=== PATIENT | female | born 1980 | race Caucasian/White ===

== ENCOUNTER 2016-11-01 14:58 | Emergency (ER) | payer BC ==
[2016-11-01 15:25] VITALS: BP 135/73
[2016-11-01] MEDS ORDERED: Ketorolac 60 MG/2 ML SDV IM ONE (16:04)
[2016-11-01] MEDS ORDERED: Cyclobenzaprine 10 MG Tab PO ONE (16:04)
--- NOTE | 2016-11-01 16:07 | EDM.PDOC ---
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 may have had long exposures with her head down while she's working has tried ibuprofen with minimal relief - Related Data Allergies/ADRs: Allergies Allergy/AdvReac Type Severity Reaction Status Date / Time Penicillins Allergy Cannot Verified 11/01/16 15:17 Remember Home Meds: Home Meds Gabapentin [Gabapentin] 11/01/16 [History] Gemfibrozil [Gemfibrozil] 11/01/16 [History] Insulin Aspart [NovoLOG] 11/01/16 [History] Lisinopril [Lisinopril] 11/01/16 [History] Naltrexone HCl/Bupropion HCl [Contrave ER 8-90 mg Tablet] 11/01/16 [History] Omeprazole 11/01/16 [History] metFORMIN [Glucophage] 11/01/16 [History] traMADol [Take Home: traMADol 50 MG, 4 Tab Pack] 11/01/16 [History] Past Medical History Endocrine/Metabolic History: Reports: Diabetes, type II - Past Surgical History GI Surgical History: Reports: Cholecystectomy Social & Family History - Tobacco Use Smoking Status *Q: Never Smoker ED ROS GENERAL - Review of Systems Review Of Systems: See Below Constitutional: Reports: no symptoms HEENT: Reports: No symptoms Respiratory: Reports: no symptoms Cardiovascular: Reports: No symptoms GI/Abdominal: Reports: No symptoms : Reports: no symptoms Musculoskeletal: Reports: neck pain ED EXAM, UPPER BACK/NECK PAIN - Physical Exam Exam: See Below Exam Limited By: No limitations General Appearance: alert, WD/WN, no apparent distress Head Exam: atraumatic, normocephalic Neck Exam: normal alignment, normal inspection, limited range of motion, muscle spasm, painful range of motion, paraspinous muscle tender, tenderness, tender lateral. No: spinous processes tender, stiff neck, tender midline Course - Vital Signs Last Recorded V/S: Last Vital Signs Temp 98.6 F 11/01/16 15:23 Pulse 108 H 11/01/16 15:23 Resp 14 11/01/16 15:23 BP 135/73 11/01/16 15:23 Pulse Ox 98 11/01/16 15:23 - Orders/Labs/Meds Meds: Medications Discontinued Medications Generic Name Dose Route Start Last Admin Trade Name Megan PRN Reason Stop Dose Admin Cyclobenzaprine HCl 10 mg 11/01/16 16:04 11/01/16 16:31 Flexeril PO 11/01/16 16:05 10 mg ONETIME ONE Administration Ketorolac Tromethamine 60 mg 11/01/16 16:04 11/01/16 16:31 Toradol IM 11/01/16 16:05 60 mg ONETIME ONE Administration Departure - Departure Time of Disposition: 16:50 Disposition: Home, Self-Care 01 Condition: good Clinical Impression: Neck pain, Sprain Forms: ED Department Discharge Additional Instructions: continue to use ibuprofen as needed for pain control, use Flexeril as needed for muscle relaxant, Please followup with your primary care provider in 3-5 days if not better, please call return to the emergency department with worsening of symptoms. - Assessment/Plan Plan: Assessment Acuity = acute Site and laterality = neck spasm Etiology = secondary to overuse injury Manifestations = pain Location of injury = home Lab values = none Plan she had good relief with the Toradol injection and Flexeril plan is to discharge home with Flexeril follow up with primary care 3-5 days if no improvement Patient was in agreement with the plan all questions were answered, they were instructed to return to the emergency department or call for worsening symptoms. This note was dictated using [employer] voice recognition software please call with any questions.
== END 2016-11-01 17:03 | disposition home or self-care (01) ==
LOC: JP.ED 14:58
DX: S13.9XXA Sprain of joints and ligaments of unspecified parts of neck, initial encounter (principal); E11.9 Type 2 diabetes mellitus without complications; Z88.0 Allergy status to penicillin; Z98.890 Other specified postprocedural states; X58.XXXA Exposure to other specified factors, initial encounter
CPT/HCPCS: 96372; 99283; A9270; J1885

== ENCOUNTER 2017-07-16 08:22 | Inpatient (IN) | payer BC ==
[~2017-07-16 08:22] MED LIST: Dexamethasone 4 MG/ML SDV ONE; Glycopyrrolate 0.2 MG/ML 5 ML MDV ONE; Lactated Ringers 1,000 ML ONE; Midazolam 1 MG/ML 2 ML SDV ONE; Neostigmine Methylsulfate 1 MG/ML 5 ML Syringe ONE; Ondansetron 4 MG/2 ML SDV ONE; Propofol 200 MG/20 ML SDV ONE; Rocuronium 50 MG/5 ML Vial ONE; Succinylcholine 200 MG/10 ML MDV ONE; cefOXitin 2 GM Vial ONE; fentaNYL 250 MCG/5 ML SDV ONE
[2017-07-16] MEDS ORDERED: Celecoxib 200 MG Cap PO ONE (08:30)
[2017-07-16] MEDS ORDERED: Gabapentin 300 MG Cap PO ONE (08:30)
[2017-07-16] MEDS ORDERED: Scopolamine 1.5 MG Transdermal Patch TOP SCH (08:30)
[2017-07-16] MEDS ORDERED: Acetaminophen 500 MG Tab PO ONE (08:30)
[2017-07-16] MEDS ORDERED: cefOXitin 2 GM in Sodium Chloride 0.9% 50 ML IV ONE (10:00)
[2017-07-16] MEDS ORDERED: Dextrose 5%-Lactated Ringers 1,000 ML IV SCH (10:00)
[2017-07-16] MEDS ORDERED: Lidocaine 2% 100 MG/5 ML Syringe IVPUSH ONE (10:30)
[2017-07-16] MEDS ORDERED: Ketamine 500 MG/5 ML MDV IV ONE (10:30)
[2017-07-16] MEDS ORDERED: Ropivacaine 54 ML, Dexamethasone 8 MG, EPINEPHrine 0.4 MG, Sodium Chloride 0.9% 23.6 ML NERVRT ONE ×4 (10:30)
[2017-07-16] MEDS ORDERED: Rocuronium 50 MG/5 ML Vial ONE (11:27)
[2017-07-16] MEDS ORDERED: fentaNYL 100 MCG/2 ML SDV ONE (12:50)
[2017-07-16] MEDS ORDERED: Insulin Aspart 100 Units/ML 3 ML Pen SUBCUT ONE (13:23)
[2017-07-16] MEDS ORDERED: Labetalol 20 MG/4 ML Syringe IVPUSH ONE (13:30)
--- NOTE | 2017-07-16 14:09 | CR ---
Chest 1V Frontal HISTORY: Central line placement. COMPARISON: None FINDINGS: Left-sided central line catheter. Distal tip overlies superior vena cava. Widening of the m ediastinum typical for portable lordotic projection. No focal infiltrates or pneumothorax.
[2017-07-16] MEDS: Lidocaine 0.4%/D5W 2 GM/500 ML BAG IV SCH (14:24)
[2017-07-16] MEDS ORDERED: Meperidine PF 100 MG/ML Syringe IM ONE (14:45)
[2017-07-16] MEDS ORDERED: Ondansetron 4 MG/2 ML SDV IVPUSH PRN (15:00)
[2017-07-16] MEDS ORDERED: Metoclopramide 10 MG/2 ML SDV IVPUSH PRN (15:00)
[2017-07-16] MEDS ORDERED: diphenhydrAMINE 50 MG/ML SDV IVPUSH PRN (15:00)
[2017-07-16] MEDS ORDERED: hydrOXYzine HCl 100 MG/2 ML SDV IM PRN (15:00)
[2017-07-16] MEDS ORDERED: Albuterol/Ipratropium 3.0-0.5 MG/3 ML Neb Soln INH PRN (15:00)
[2017-07-16] MEDS ORDERED: Glucagon,Human Recombinant 1 MG Vial IM PRN (15:00)
[2017-07-16] MEDS ORDERED: Labetalol 20 MG/4 ML Syringe IVPUSH PRN (15:00)
[2017-07-16] MEDS ORDERED: 50% Dextrose in Water 50 ML Syringe IVPUSH PRN (15:00)
[2017-07-16] MEDS: Albuterol/Ipratropium 3.0-0.5 MG/3 ML Neb Soln INH SCH ×2 (15:16→19:59)
[2017-07-16] MEDS ORDERED: MVI, Adult with Vitamin K 10 ML, Thiamine 200 MG, Chromium/Copper/Mang/Selen/Zn 1 ML in... IV SCH ×4 (16:00)
[2017-07-16] MEDS ORDERED: Pantoprazole 40 MG Vial IVPUSH SCH (16:00)
[2017-07-16] MEDS: Gabapentin 250 MG/5 ML Solution ML 470 ML Bottle PO SCH ×2 (16:36→20:00)
[2017-07-16] MEDS: Acetaminophen Soln 650 MG/20.3 ML UD Cup PO SCH ×2 (16:36→22:22)
[2017-07-16] MEDS: metFORMIN 500 MG Tab PO SCH (16:37)
[2017-07-16] MEDS: cefOXitin 2 GM in Sodium Chloride 0.9% 50 ML IV SCH ×2 (16:37→22:21)
[2017-07-16] MEDS: Insulin Aspart 100 Units/ML 3 ML Pen SUBCUT PRN (16:38)
[2017-07-16] MEDS: HYDROmorphone 1 MG/ML Syringe IVPUSH PRN (19:56)
[2017-07-16] MEDS: Heparin Sodium 5,000 Units/ML Vial SUBCUT SCH (19:59)
[2017-07-16] MEDS ORDERED: Benzocaine/Cetylpyridinium/Menthol Lozenge MUCMEM PRN (22:15)
[2017-07-16] MEDS: Dextrose 5%-Lactated Ringers 1,000 ML IV SCH (22:44)
[2017-07-17] MEDS: Insulin Aspart 100 Units/ML 3 ML Pen SUBCUT PRN ×4 (00:19→22:52)
[2017-07-17] MEDS: HYDROmorphone 1 MG/ML Syringe IVPUSH PRN ×3 (00:38→10:55)
[2017-07-17] MEDS: Lidocaine 0.4%/D5W 2 GM/500 ML BAG IV SCH (02:15)
[2017-07-17] MEDS: Acetaminophen Soln 650 MG/20.3 ML UD Cup PO SCH ×4 (03:45→21:00)
[2017-07-17] MEDS: cefOXitin 2 GM in Sodium Chloride 0.9% 50 ML IV SCH ×4 (03:45→20:59)
[2017-07-17] MEDS ORDERED: Iohexol 647 MG/ML 50 ML SDV PO SCH (03:45)
[2017-07-17] MEDS: Dextrose 5%-Lactated Ringers 1,000 ML IV SCH (05:09)
[2017-07-17] MEDS: Albuterol/Ipratropium 3.0-0.5 MG/3 ML Neb Soln INH SCH ×4 (07:26→20:53)
[2017-07-17] MEDS: Heparin Sodium 5,000 Units/ML Vial SUBCUT SCH ×2 (08:20→20:53)
[2017-07-17] MEDS: metFORMIN 500 MG Tab PO SCH ×2 (08:20→17:02)
[2017-07-17] MEDS: Celecoxib 200 MG Cap PO SCH (08:20)
[2017-07-17] MEDS: Gabapentin 250 MG/5 ML Solution ML 470 ML Bottle PO SCH ×2 (08:21→20:54)
[2017-07-17] MEDS: SCOPOLAMINE PATCH CHECK TOP SCH (08:22)
[2017-07-17] MEDS: Lisinopril 5 MG Tab PO SCH (08:29)
[2017-07-17] MEDS: Lactated Ringers 1,000 ML IV SCH (08:31)
[2017-07-17] MEDS: HYDROmorphone 2 MG Tab PO PRN ×2 (14:02→19:38)
[2017-07-17] MEDS ORDERED: MVI, Adult with Vitamin K 10 ML, Thiamine 200 MG, Chromium/Copper/Mang/Selen/Zn 1 ML in... IV SCH ×4 (16:00)
[2017-07-17] MEDS: Lansoprazole 30 MG Orally Disintegrating Tab.CR PO SCH (17:02)
[2017-07-18] MEDS: HYDROmorphone 2 MG Tab PO PRN ×5 (00:14→19:28)
[2017-07-18] MEDS: Acetaminophen Soln 650 MG/20.3 ML UD Cup PO SCH ×4 (04:11→21:36)
[2017-07-18] MEDS: cefOXitin 2 GM in Sodium Chloride 0.9% 50 ML IV SCH ×2 (04:11→09:54)
[2017-07-18] MEDS: Insulin Aspart 100 Units/ML 3 ML Pen SUBCUT PRN ×2 (04:11→10:45)
[2017-07-18] MEDS: Lactated Ringers 1,000 ML IV SCH (04:15)
[2017-07-18] MEDS: Albuterol/Ipratropium 3.0-0.5 MG/3 ML Neb Soln INH SCH ×4 (07:08→21:35)
[2017-07-18] MEDS ORDERED: Magnesium Hydroxide 400 MG/5 ML Susp 30 ML Cup PO PRN (07:52)
[2017-07-18] MEDS ORDERED: Sodium Chloride 0.9% 10 ML Syringe IV PRN (07:54)
[2017-07-18] MEDS ORDERED: Magnesium Hydroxide 400 MG/5 ML Susp 30 ML Cup PO ONE (09:00)
[2017-07-18] MEDS ORDERED: Cyanocobalamin (Vitamin B12) 1,000 MCG/ML SDV IM ONE (09:00)
[2017-07-18] MEDS: Celecoxib 200 MG Cap PO SCH (09:49)
[2017-07-18] MEDS: Lisinopril 5 MG Tab PO SCH (09:51)
[2017-07-18] MEDS: metFORMIN 500 MG Tab PO SCH ×2 (09:53→16:11)
[2017-07-18] MEDS: Heparin Sodium 5,000 Units/ML Vial SUBCUT SCH ×2 (09:54→21:35)
[2017-07-18] MEDS: Gabapentin 250 MG/5 ML Solution ML 470 ML Bottle PO SCH ×2 (09:54→21:35)
[2017-07-18] MEDS: SCOPOLAMINE PATCH CHECK TOP SCH (09:55)
--- NOTE | 2017-07-18 14:17 | PN ---
DATE OF SERVICE: 07/17/2017 The patient has been afebrile with stable vital signs. Blood sugars are running in the mid 200s and we will decrease the IV rate to 100 mL/hour and switch her to plain LR. Otherwise, we will see how things go with the metformin alone today, and otherwise, go up to step-2 diet and maximize activity working with pulmonary toilet. Grayson Esparza MD /[id number]
[2017-07-18] MEDS: Lansoprazole 30 MG Orally Disintegrating Tab.CR PO SCH (16:11)
[2017-07-19] MEDS: HYDROmorphone 2 MG Tab PO PRN ×5 (02:03→23:33)
[2017-07-19] MEDS: Acetaminophen Soln 650 MG/20.3 ML UD Cup PO SCH ×4 (03:26→22:13)
[2017-07-19] MEDS: Insulin Aspart 100 Units/ML 3 ML Pen SUBCUT PRN (04:21)
[2017-07-19] MEDS: Albuterol/Ipratropium 3.0-0.5 MG/3 ML Neb Soln INH SCH ×4 (07:20→22:29)
[2017-07-19] MEDS: Celecoxib 200 MG Cap PO SCH (08:21)
[2017-07-19] MEDS: metFORMIN 500 MG Tab PO SCH ×2 (08:21→17:12)
[2017-07-19] MEDS: Gabapentin 250 MG/5 ML Solution ML 470 ML Bottle PO SCH ×2 (08:28→21:45)
[2017-07-19] MEDS: Lisinopril 5 MG Tab PO SCH (08:28)
[2017-07-19] MEDS: Heparin Sodium 5,000 Units/ML Vial SUBCUT SCH ×2 (08:29→22:13)
--- NOTE | 2017-07-19 09:12 | CR ---
Limited upper GI The patient is status post Anderson-en-Y gastric bypass. There are left upper quadrant drains in place. T here is no extravasation of contrast. The gastric pouch empties readily into a nondilated Anderson limb. No complications are evident. Impression: 1. Status post Anderson-en-Y gastric bypass without evidence for complication.
--- NOTE | 2017-07-19 14:27 | PN ---
DATE OF SERVICE: 07/18/2017 The patient has been afebrile with stable vital signs. Oral intake was reasonably good around 1030 hours yesterday and we will therefore saline lock her IV today. Her blood sugars are still running in the 180 to the low 200s and I think we will add Januvia 100 mg today which would probably get these down to nice levels without needing any insulin coverage. Otherwise, we will give her some bowel stimulation today. She will get in the shower and may be ready for discharge home tomorrow. Grayson Esparza MD /[id number]
--- NOTE | 2017-07-19 15:34 | PN ---
DATE OF SERVICE: 07/19/2017 SUBJECTIVE: Kaitlyn is postoperative day #3, she spiked a temp is a 101.4 during the night. She reported left shoulder pain and blood sugars were 234, 160, 227, and 165 over the past 24 hours. She was started on metformin and Januvia yesterday. Oral intake 1,420, urine output 2,050, CELIO drain put out 30 mL of a light pink serosanguineous drainage. She reports her pain is controlled, up ambulating. REVIEW OF SYSTEMS: Remainder of review of systems is negative for any pertinent positives and negatives. OBJECTIVE: GENERAL: Kaitlyn Haque is a pleasant 37-year-old female. VITAL SIGNS: TPR is 99.7, 95, 17, and blood pressure 147/72. HEENT: Negative. NECK: Supple. HEART: Regular rate and rhythm. LUNGS: Clear. ABDOMEN: Dressings dry and intact. Abdominal binder is on. CELIO drain intact. Draining as above. EXTREMITIES: Without peripheral edema. ASSESSMENT: Laparoscopic Anderson-en-Y gastric bypass surgery and insertion of central vein catheter for morbid obesity and inadequate peripheral vein access. Date of surgery 07/16/2017. PLAN: 1. Change Tylenol to 650 mg p.o. tablet. It was stated in report that she was getting liquid but orders read that the Tylenol ordered was the tablets on July 16 at 1600. 2. Acapella, use 10 times every hour while awake. 3. Discontinue Januvia due to history of pancreatitis. 4. May start Jardiance either 10 or 25 mg depending on blood sugars in a.m. 5. Check CBC, CMP, and magnesium phosphorus in a.m. 6. Good pulmonary toilet. 7. We will evaluate p.r.n. or in a.m. Paige Condon PA-C /[id number]
[2017-07-19] MEDS ORDERED: Pantoprazole 40 MG Delayed-Release Granules 1 Packet PO SCH (16:30)
[2017-07-20 04:08] VITALS: BP 144/82
[2017-07-20] MEDS: Acetaminophen Soln 650 MG/20.3 ML UD Cup PO SCH (04:09)
[2017-07-20] MEDS: Albuterol/Ipratropium 3.0-0.5 MG/3 ML Neb Soln INH SCH (07:25)
[2017-07-20] MEDS: HYDROmorphone 2 MG Tab PO PRN (09:03)
[2017-07-20] MEDS: Heparin Sodium 5,000 Units/ML Vial SUBCUT SCH (09:04)
[2017-07-20] MEDS: Lisinopril 5 MG Tab PO SCH (09:04)
[2017-07-20] MEDS: Celecoxib 200 MG Cap PO SCH (09:04)
[2017-07-20] MEDS: metFORMIN 500 MG Tab PO SCH (09:04)
[2017-07-20] MEDS: Gabapentin 250 MG/5 ML Solution ML 470 ML Bottle PO SCH (09:21)
[2017-07-20] MEDS ORDERED: Acetaminophen 325 MG Tab PO SCH (10:00)
--- NOTE | 2017-07-21 09:34 | DISCH ---
ADMISSION DIAGNOSES: 1. Morbid obesity with body mass index of 36. 2. Controlled type 2 diabetes. 3. Hypertriglyceridemia. 4. Peripheral autonomic neuropathy due to diabetes. 5. Proteinuria. 6. Gastroesophageal reflux disease. 7. Major depression disorder. 8. Adjustment disorder. DISCHARGE DIAGNOSES: 1. Laparoscopic Anderson-en-Y gastric bypass surgery. 2. Liver biopsy. 3. Ligation of venous complex adjacent to splenic vein for morbid obesity and hepatomegaly. 4. Focal portal hypertension involving the spleen. DATE OF SURGERY: 07/16/2017. HISTORY: Kaitlyn Haque is a 37-year-old female with morbid obesity and increasing comorbidities. After preoperative evaluation and discussion of possible risks and possible complications, she wished to proceed with surgical procedure. HOSPITAL COURSE: Kaitlyn had her surgery on 07/16/2017. She had no operative complications. On postoperative day #1, her upper GI was normal. Her blood sugars were in the 200s. IV rate was changed from D5LR to lactated Ringer at 100 mL/hr. She was started on metformin and step 2 gastric bypass diet without cereal. On postoperative day #2, blood sugars were still running 180 to 200. Januvia 100 mg was added. On postoperative day #3, she had a temperature max of 101.4 and reported left shoulder pain. Blood sugars were 234 and the lowest was 160. The Januvia was discontinued, and she continued good pulmonary toilet, ambulation, and adequate fluid intake. On postoperative day #4, she was able to be discharged to home. Blood sugar last checked was at 160. Pain was controlled. Activity was good. She received adequate education. Vital signs were stable. PHYSICAL EXAMINATION: GENERAL: Kaitlyn Haque is a pleasant 37-year-old female. VITAL SIGNS: Height is 5 feet 7 inches and weight is 234 pounds. Temperature was 98.9, pulse was 105, respirations were 18, and blood pressure was 144/82. HEENT: Negative. NECK: Supple. HEART: Regular rate and rhythm. LUNGS: Clear. ABDOMEN: Incisions look good. Abdominal binder is on. EXTREMITIES: Without peripheral edema. DISPOSITION: Discharged to home. CONDITION: Stable and improving. DISCHARGE FOLLOWUP: Followup appointment with Paige Condon PA-C on 07/23/2017 at 9:00 a.m. HOME MEDICATIONS: 1. Celebrex 200 mg p.o. daily. She is to start taking Celebrex 200 mg, #14. 2. Magnesium oxide 400 mg p.o. daily, #90. 3. Zofran ODT 4 mg q.6 hours p.r.n. nausea, #30. 4. Continue Tylenol 650 mg q.4 hours p.r.n. pain. 5. Gabapentin 600 mg oral twice daily. 6. Lopid 600 mg oral twice daily. 7. Tramadol one to two oral 3 times daily p.r.n. diabetic neuropathy pain. DIET AFTER DISCHARGE: Step 2 gastric bypass diet with no cereal. Drink eight to ten glasses of water a day. ACTIVITY: As tolerated. Driving, do not drive for one week. Shower/bathing, may shower. Notify provider if any fever, increased pain, nausea, or vomiting. Keep site clean and dry. Wear abdominal binder for one week, and then as tolerated. SPECIAL INSTRUCTIONS: 1. Use incentive spirometer 10 times every hour while awake for one week. 2. Check blood sugars twice daily and as needed. 3. Keep a record of protein and fluid intake.
--- NOTE | 2017-07-21 15:37 | OR ---
DATE OF PROCEDURE: 07/16/2017 PREOPERATIVE DIAGNOSIS: Morbid obesity. POSTOPERATIVE DIAGNOSES: 1. Morbid obesity. 2. Marked hepatomegaly. 3. Focal portal hypertension around the spleen with inflammatory adherence of splenic vessels to posterior aspect of stomach. OPERATIVE PROCEDURES: 1. Laparoscopic Anderson-en-Y gastric bypass with long limb gastroenterostomy (73665). 2. Jose E-Cut needle liver biopsy (23213). 3. Ligation of engorged venous and arterial vessels adjacent to splenic vein and splenic artery (95016). ANESTHESIA: General. PROTOTYPE MACHINE OPERATOR: Paige Condon PA-C. INDICATIONS FOR PROCEDURE: This 37-year-old female presenting with longstanding morbid obesity and increasingly significant comorbidities. After preoperative evaluation and discussion, she wished to proceed with a gastric bypass procedure. Potential risks of the procedure including bleeding, infection, leaks from various GI tract closures, problems with bowel obstruction over time as well as possibility of biliary, cardiopulmonary, septic, or hemorrhagic complications leading to were all discussed, and the patient wishes to proceed. DETAILS OF PROCEDURE: The patient was taken to the operative room and placed in a supine position. After general endotracheal anesthesia was induced, she was converted to a lithotomy position. Orogastric tube placed and the abdomen was prepped and draped. A 15 cm inferior and 5 cm left of xiphoid process, a transverse incision was made and the peritoneal cavity entered under direct vision with an Optiview trocar and inflated to 15 mmHg pressure of CO2. Laparoscope was then reinserted. No underlying trocar insertion site injuries were seen. Following this, bilateral subcostal transversus abdominis plane blocks were placed. These were placed with direct visualization of the needle tip being within the transversus abdominis muscle from within. At this point, 5 additional trocars were placed across the upper and midabdomen, and general exploration was undertaken. The patient was noted to have marked hepatomegaly with liver volume being roughly 3 to 4 times normal and liver grossly fatty infiltrated. Jose E-Cut needle biopsies were obtained from left lobe of the liver. Minimal bleeding from the biopsy sites was controlled with electrocautery. Following this, the omentum was divided in the midline up to the level of the transverse colon. This allowed identification of the small bowel to the ligament of Treitz. Small bowel was then traced out 200 cm distal to that point, where it was divided transversely with a ANGELO stapler. Small bowel was then traced out an additional 150 cm, where the side-to- side enteroenterostomy was accomplished with an internal firing of the Endo-ANGELO 60 mm stapler. The common opening was closed transversely, angles anastomosed, and mesenteric defect approximated with some 0 Ethibond stitch along with fibrin sealant. The divided end of the Anderson limb was then from the mesentery for a few centimeters, which allowed an antecolic position of the Anderson limb up to the level of the gastroesophageal junction without tension. At this point, the liver was retracted anteriorly. The patient was noted not to have any significant hiatal hernia. The patient was noted to have what appeared to be some focal portal hypertension around the spleen. The remainder of the mesenteric vessels throughout the abdomen were uninvolved. 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 Subsequently, during the course of the dissection behind the stomach and creation of the pouch, the posterior aspect of the stomach was noted to be quite adherent to the area of the splenic vessels and with these being engorged, there was some significant amount of bleeding and group of the venous branches and arterial branches to the splenic vein and artery were then ligated with a [id number] stitch of 3-0 Vicryl stitch. This appeared to satisfactorily control the bleeding. The main course of the splenic artery and vein were noted to be still intact. The gastrointestinal balloon catheter was then inflated to 15 mL and pulled up snugly against the EG junction. Gastric wall of the apex balloon was then marked with electrocautery, and the lesser omental tissue adjacent to the gastric cardia was incised. At this point, where the stomach was initially divided with a transverse firing of the ANGELO stapler at the level of cauterized martell in the gastric cardia, the patient was noted to have that area of bleeding adjacent to the splenic artery and vein, and that area was then controlled with a [id number] stitch of 3-0 Vicryl stitch. There was quite a bit in way of venous collaterals extending from the spleen to the abdominal wall and the omental attachments to a lesser extent into the short gastric vessels. The pouch was then completed with 2 additional firings of the ANGELO stapler up to and through the angle of His. At this point, the anvil of a 25-mm EEA stapler was attached to Ripley sump type tube. The latter was brought down through the mouth and taken out through a small opening in the gastric pouch. The anvil likewise was pulled down to within the gastric pouch. The divided end of the Anderson limb was then opened and the main body of the EEA stapler was passed several centimeters into the lumen of the small bowel, brought up the anvil and united with it, thus creating the gastrojejunostomy. Upon removal of the stapler, double donuts of mucosa were noted within it. Small bowel was closed off with a vascular staple line. Gastrojejunostomy was then reinforced with some 3-0 Vicryl seromuscular stitch along with fibrin sealant. A leak test was accomplished with injection of 120 mL of air in the gastric pouch while submerged with cefoxitin-containing saline solution. No leaks were noted. One Moose- Estes drain was taken out the left lateral trocar site and positioned adjacent to the gastrojejunostomy and from there into the center of the splenic fossa. With no further problems noted, trocars were removed and the peritoneal cavity deflated. Incisions were then closed with some 4-0 Vicryl skin stitch, which was also used to fix the drain. The patient was taken to the recovery room in a satisfactory condition. Physician orthopaedic physician assistant, Paige Condon, played an essential role in assisting in this case, helping to position the patient, retract structures as needed, as well as suturing and cutting sutures when indicated. Her presence improved patient safety and decreased the operative time. Grayson Esparza MD /[id number]
== END 2017-07-20 12:00 | disposition home or self-care (01) | DRG 403 ==
LOC: JP.SDS 08:22 → JP.MS 08:22 → EDSTATUS 11:00 → JP.2SS 14:10
PROVIDERS: ADMIT Surgery; ATTEND Surgery
PROC: 0D164ZA Bypass Stomach to Jejunum, Percutaneous Endoscopic Approach (ICD-10-PCS; principal; 2017-07-16)
PROC: 0FB24ZX Excision of Left Lobe Liver, Percutaneous Endoscopic Approach, Diagnostic (ICD-10-PCS; 2017-07-16)
PROC: 3E0T3BZ Introduction of Anesthetic Agent into Peripheral Nerves and Plexi, Percutaneous Approach (ICD-10-PCS; 2017-07-16)
PROC: 06L Lower Veins, Occlusion (ICD-10-PCS; 2017-07-16)
PROC: 04L Lower Arteries, Occlusion (ICD-10-PCS; 2017-07-16)
PROC: 02HV33Z Insertion of Infusion Device into Superior Vena Cava, Percutaneous Approach (ICD-10-PCS; 2017-07-16)
DX: E66.01 Morbid (severe) obesity due to excess calories (principal); Z68.36 Body mass index [BMI] 36.0-36.9, adult; E11.43 Type 2 diabetes mellitus with diabetic autonomic (poly)neuropathy; Z79.84 Long term (current) use of oral hypoglycemic drugs; Z87.891 Personal history of nicotine dependence; E78.1 Pure hyperglyceridemia; R80.9 Proteinuria, unspecified; F32.9 Major depressive disorder, single episode, unspecified; R16.0 Hepatomegaly, not elsewhere classified; Z88.5 Allergy status to narcotic agent; Z88.0 Allergy status to penicillin; Z88.8 Allergy status to other drugs, medicaments and biological substances; K76.6 Portal hypertension; I80.9 Phlebitis and thrombophlebitis of unspecified site; K76.0 Fatty (change of) liver, not elsewhere classified; K91.2 Postsurgical malabsorption, not elsewhere classified
CPT/HCPCS: 36415; 71010; 71010-26; 74240; 74240-26; 80053; 82480; 82962; 83036; 83735; 84100; 85025; 85027; 86850; 86900; 86901; 88307; 88313; 94640; 94667; A9270-GY; C9113; J0171; J0330; J0694; J1100; J1170; J1642; J1644; J2001; J2175; J2250; J2405; J2704; J2710; J2795; J3010; J3410; J3411; J3420; J7030; J7040; J7042; J7050; J7120; J7620; Q9967

== ENCOUNTER 2018-10-06 14:29 | Emergency (ER) | payer BC ==
[2018-10-06] MEDS ORDERED: Sodium Chloride 0.9% 10 ML Syringe FLUSH ONE (16:16)
[2018-10-06] MEDS ORDERED: Sodium Chloride 0.9% 75 ML IV ONE (16:16)
[2018-10-06] MEDS ORDERED: Iopamidol 612 MG/ML 150 ML Bottle IV SCH (16:30)
[2018-10-06] MEDS ORDERED: Sodium Chloride 0.9% 1,000 ML IV SCH (16:30)
--- NOTE | 2018-10-06 17:16 | CRLCT ---
INDICATION: Distended abdomen TECHNIQUE: CT abdomen and pelvis acquired with 116 cc Isovue-300 IV contrast. COMPARISON: [facility] from earlier today, CT abdomen pelvis April 07, 2013 FINDINGS: Lower chest: Unremarkable. Liver: Unremarkable. Spleen: Unremarkable. Pancreas: Partially calcified soft tissue mass in adjacent to the pancreatic tail measuring 7.3 x 3.5 cm, stable in size compared to April 07, 2013. Gallbladder and bile ducts: S/p cholecystectomy. Adrenal glands: 1.6 cm right adrenal gland mass, stable. Kidneys: 2 mm nonobstructive right renal stone. GI tract: Status post gastric bypass procedure moderate amount of feces in the colon. Appendix measures 8 mm in diameter. There is no periappendiceal fat stranding. Vascular structures: Multiple varices in the left upper quadrant again noted. Lymph nodes: Unremarkable. Miscellaneous: Small free fluid in the pelvis. Pelvic Organs: Unremarkable. Bones: Unremarkable for age. IMPRESSION: The appendix measures 8 mm in diameter. Although there is no periappendiceal fat stranding, acute appendicitis cannot be excluded. Small free fluid in the pelvis. Correlate with physical exam. Chronic, partially calcified pseudocyst in the pancreatic tail. Stable right adrenal gland mass. Nonobstructive right nephrolithiasis. Status post cholecystectomy and gastric bypass procedure. Please note that all CT scans at this facility use dose modulation, iterative reconstruction, and/or weight-based dosing when appropriate to reduce radiation dose to as low as reasonably achievable. Dictated by Debi Jackson MD @ Oct 06 2018 4:57PM Signed by Dr. Debi Jackson @ Oct 06 2018 5:15PM
--- NOTE | 2018-10-06 17:24 | CRLCR ---
Indication: Distended abdomen Technique: Frontal view chest, supine and upright views abdomen Comparison: None Findings/Impression: : Normal cardiomediastinal silhouette. Clear lungs and pleural spaces. Nonspecific bowel gas pattern. Suture material seen in the left upper quadrant. Surgical tatyana in the right upper quadrant. No free air or pneumatosis. Osseous structures are unremarkable. Dictated by Debi Jackson MD @ Oct 06 2018 5:21PM Signed by Dr. Debi Jackson @ Oct 06 2018 5:22PM
[2018-10-06 17:33] VITALS: BP 112/70
--- NOTE | 2018-10-06 17:48 | EDM.PDOC ---
ED HPI GENERAL MEDICAL PROBLEM - General Chief Complaint: Abdominal Pain Stated Complaint: ABD PAIN Time Seen by Provider: 10/06/18 14:35 Source of Information: Reports: Patient History Limitations: Reports: No Limitations - History of Present Illness INITIAL COMMENTS - FREE TEXT/NARRATIVE: pt arrived with pain accross her abdoman and she felt somewhat distended. She felt like she needed to pass gas. Onset: Today, Sudden, Other ( she did have slight discomfort last nite. ) Duration: Hour(s): Location: Reports: Abdomen, Other (pt did have a gastric bypass about 1 year ago , ) Associated Symptoms: Reports: Loss of Appetite Abdomen Pain Score (Numeric/FACES): 5 - Related Data Allergies Allergy/AdvReac Type Severity Reaction Status Date / Time codeine Allergy Nausea and Verified 10/06/18 15:02 Vomiting Penicillins Allergy Cannot Verified 10/06/18 15:02 Remember succinylcholine Allergy Other Verified 10/06/18 15:02 Home Meds: Home Meds Gabapentin [Neurontin] 600 mg PO BID 07/13/17 [History] Gemfibrozil [Lopid] 600 mg PO BIDAC 07/13/17 [History] Lisinopril 5 mg PO DAILY 07/13/17 [History] metFORMIN [Glucophage] 1,000 mg PO BIDMEALS 07/13/17 [History] Magnesium Oxide 400 mg PO DAILY #90 tab 07/20/17 [Rx] buPROPion [Wellbutrin SR] 150 mg PO BID 10/06/18 [History] Past Medical History Cardiovascular History: Reports: High Cholesterol, Hypertension Gastrointestinal History: Reports: Pancreatitis Genitourinary History: Reports: None 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: Reports: Polycystic Ovaries, Spontaneous , Other (See Below) Other 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: polyps removed Musculoskeletal History: Reports: Back Pain, Chronic Psychiatric History: Reports: Anxiety, Depression Endocrine/Metabolic History: Reports: Diabetes, Type II, Obesity/BMI 30+ Dermatologic History: Reports: None - Infectious Disease History Infectious Disease History: Reports: Chicken Pox, Shingles - Past Surgical History Head Surgeries/Procedures: Reports: None Cardiovascular Surgical History: Reports: None GI Surgical History: Reports: Bariatric Procedure, Cholecystectomy Other GI Surgeries/Procedures: amy 2016 Female Surgical History: Reports: D&C, Other (See Below) Other Female Surgeries/Procedures: polyps removed Endocrine Surgical History: Reports: None Musculoskeletal Surgical History: Reports: None Dermatological Surgical History: Reports: None Social & Family History - Family History Family Medical History: Noncontributory Cardiac: Reports: [place] : Reports: Other (See Below) Other Family History: bladder prolapse Musculoskeletal: Reports: Arthritis Neurological: Reports: CVA Endocrine/Metabolic: Reports: Diabetes, type II Dermatologic: Reports: Psoriasis - Tobacco Use Smoking Status *Q: Former Smoker Years of Tobacco use: 11 Packs/Tins Daily: 0.5 Used Tobacco, but Quit: Yes Month/Year Tobacco Last Used: 12/2007 Second Hand Smoke Exposure: No - Caffeine Use Caffeine Use: Reports: None - Recreational Drug Use Recreational Drug Use: No ED ROS GENERAL - Review of Systems Review Of Systems: See Below Constitutional: Reports: No Symptoms HEENT: Reports: No Symptoms Respiratory: Reports: No Symptoms Cardiovascular: Reports: No Symptoms Endocrine: Reports: No Symptoms GI/Abdominal: Reports: Abdominal Pain, Other (pt feels full and she is not able to pass gas. She had some symptoms yesterday. She is 1 year out from her gastric by pass. ) : Reports: No Symptoms Musculoskeletal: Reports: No Symptoms Skin: Reports: No Symptoms ED EXAM, GI/ABD - Physical Exam Exam: See Below Text/Narrative:: pt arrived with pain accross her abdoman. She has had a gastric by pass 1 year ago. She has not vomited. She has not had a fever. She feels like she is not able to pass gas. Exam Limited By: No Limitations General Appearance: Alert, Anxious, Mild Distress Ears: Normal TMs Nose: Normal Inspection Throat/Mouth: Normal Inspection Head: Atraumatic Neck: Normal Inspection Respiratory/Chest: No Respiratory Distress Cardiovascular: Regular Rate, Rhythm GI/Abdominal Exam: Other ( pt has generalized tenderness but no areas of guarding. She did pass some gas while here and felt better. ) (Female) Exam: Deferred Rectal (Female) Exam: Deferred Back Exam: Normal Inspection Extremities: Normal Inspection Neurological: Alert, Oriented, Normal Cognition Psychiatric: Normal Affect Course - Vital Signs Last Recorded V/S: Last Vital Signs Temp 36.2 C 10/06/18 15:07 Pulse 70 10/06/18 17:32 Resp 16 10/06/18 15:07 BP 112/70 10/06/18 17:32 Pulse Ox 95 02/14/19 17:32 - Orders/Labs/Meds Orders: Active Orders 24 hr Category Date Time Status Sodium Chloride 0.9% [Normal Saline] 1,000 ml Med 10/06/18 16:30 Active IV ASDIRECTED Medication Orders Sodium Chloride (Normal Saline) 1,000 mls @ 999 mls/hr IV ASDIRECTED SINDHU Labs: Laboratory Tests 10/06/18 10/06/18 10/06/18 Range/Units 14:54 14:54 14:54 WBC 2.4 L (4.5-11.0) K/uL RBC 4.29 (3.30-5.50) M/uL Hgb 12.3 (12.0-15.0) g/dL Hct 36.9 (36.0-48.0) % MCV 86 (80-98) fL MCH 29 (27-31) pg MCHC 33 (32-36) % Plt Count 218 (150-400) K/uL Neut % (Auto) 22 L (36-66) % Lymph % (Auto) 49 H (24-44) % [place] % (Auto) 25 H (2-6) % Eos % (Auto) 0 L (2-4) % Baso % (Auto) 3 H (0-1) % Sodium 136 L (140-148) mmol/L Potassium 3.6 (3.6-5.2) mmol/L Chloride 100 (100-108) mmol/L Carbon Dioxide 25 (21-32) mmol/L Anion Gap 14.6 H (5.0-14.0) mmol/L BUN 11 (7-18) mg/dL Creatinine 0.6 (0.6-1.0) mg/dL Est Cr Clr Drug Dosing 124.84 mL/min Estimated GFR (MDRD) > 60 (>60) Glucose 71 L (74-106) mg/dL Calcium 9.1 (8.5-10.1) mg/dL Total Bilirubin 0.3 (0.2-1.0) mg/dL AST 9 L (15-37) U/L ALT 13 (12-78) U/L Alkaline Phosphatase 49 (46-116) U/L C-Reactive Protein 0.27 (0.0-0.3) mg/dL Total Protein 7.5 (6.4-8.2) g/dL Albumin 3.4 (3.4-5.0) g/dL Globulin 4.1 H (2.3-3.5) g/dL Albumin/Globulin Ratio 0.8 L (1.2-2.2) Urine Color Urine Appearance Urine pH (4.5-8.0) Ur Specific [place] (1.008-1.030) Urine Protein (NEGATIVE) mg/dL Urine Glucose (UA) (NEGATIVE) mg/dL Urine Ketones (NEGATIVE) mg/dL Urine Occult Blood (NEGATIVE) Urine Nitrite (NEGATIVE) Urine Bilirubin (NEGATIVE) Urine Urobilinogen (NORMAL) mg/dL Ur Leukocyte Esterase (NEGATIVE) Urine RBC (0-5) Urine WBC (0-5) Ur Epithelial Cells Amorphous Sediment Urine Bacteria Urine Mucus 10/06/18 Range/Units 15:27 WBC (4.5-11.0) K/uL RBC (3.30-5.50) M/uL Hgb (12.0-15.0) g/dL Hct (36.0-48.0) % MCV (80-98) fL MCH (27-31) pg MCHC (32-36) % Plt Count (150-400) K/uL Neut % (Auto) (36-66) % Lymph % (Auto) (24-44) % [place] % (Auto) (2-6) % Eos % (Auto) (2-4) % Baso % (Auto) (0-1) % Sodium (140-148) mmol/L Potassium (3.6-5.2) mmol/L Chloride (100-108) mmol/L Carbon Dioxide (21-32) mmol/L Anion Gap (5.0-14.0) mmol/L BUN (7-18) mg/dL Creatinine (0.6-1.0) mg/dL Est Cr Clr Drug Dosing mL/min Estimated GFR (MDRD) (>60) Glucose (74-106) mg/dL Calcium (8.5-10.1) mg/dL Total Bilirubin (0.2-1.0) mg/dL AST (15-37) U/L ALT (12-78) U/L Alkaline Phosphatase (46-116) U/L C-Reactive Protein (0.0-0.3) mg/dL Total Protein (6.4-8.2) g/dL Albumin (3.4-5.0) g/dL Globulin (2.3-3.5) g/dL Albumin/Globulin Ratio (1.2-2.2) Urine Color Yellow Urine Appearance Slightly cloudy Urine pH 5.0 (4.5-8.0) Ur Specific [place] 1.025 (1.008-1.030) Urine Protein Trace (NEGATIVE) mg/dL Urine Glucose (UA) Normal (NEGATIVE) mg/dL Urine Ketones Negative (NEGATIVE) mg/dL Urine Occult Blood Large (NEGATIVE) Urine Nitrite Negative (NEGATIVE) Urine Bilirubin Negative (NEGATIVE) Urine Urobilinogen Normal (NORMAL) mg/dL Ur Leukocyte Esterase Negative (NEGATIVE) Urine RBC 0-5 (0-5) Urine WBC 0-5 (0-5) Ur Epithelial Cells Few Amorphous Sediment Not seen Urine Bacteria Few Urine Mucus Moderate Meds: Medications Generic Name Dose Route Start Last Admin Trade Name Freq PRN Reason Stop Dose Admin Sodium Chloride 1,000 mls @ 999 mls/hr 10/06/18 16:30 Normal Saline IV ASDIRECTED SINDHU Discontinued Medications Generic Name Dose Route Start Last Admin Trade Name Freq PRN Reason Stop Dose Admin Sodium Chloride 75 mls @ 3.5 mls/sec 10/06/18 16:16 10/06/18 16:33 Normal Saline IV 10/06/18 16:17 3.5 mls/sec ONETIME ONE Administration Iopamidol 116 ml 10/06/18 16:30 10/06/18 16:33 Isovue-300 (61%) IV 10/06/18 17:00 150 ml . DIRECTED [facility] Administration Sodium Chloride 10 ml 10/06/18 16:16 10/06/18 16:33 Saline Flush FLUSH 10/06/18 16:17 10 ml ONETIME ONE Administration - Re-Assessments/Exams Free Text/Narrative Re-Assessment/Exam: 10/06/18 17:49 pt had a cat scan which did not have acute findings,. She did have a large appendix at 8mm. There did not appear to be inflamation around the appendix. Departure - Departure Time of Disposition: 17:50 Disposition: Home, Self-Care 01 Condition: Fair Clinical Impression: Abdominal pain - Discharge Information Referrals: Payal Escobar PA [Primary Care Provider] - Care Plan Goals: Go to the clinic to see Dr Esparza at ( AM tomorrow, rtc tonight if pain should get alot worse. Stay with clear liquids tonight. - My Orders Last 24 Hours: My Active Orders 10/06/18 16:30 Sodium Chloride 0.9% [Normal Saline] 1,000 ml IV ASDIRECTED - Assessment/Plan Last 24 Hours: My Active Orders 10/06/18 16:30 Sodium Chloride 0.9% [Normal Saline] 1,000 ml IV ASDIRECTED
== END 2018-10-06 18:05 | disposition home or self-care (01) ==
LOC: JP.ED 14:29
DX: R10.84 Generalized abdominal pain (principal); E78.00 Pure hypercholesterolemia, unspecified; I10 Essential (primary) hypertension; F41.9 Anxiety disorder, unspecified; F32.9 Major depressive disorder, single episode, unspecified; Z88.5 Allergy status to narcotic agent; Z88.0 Allergy status to penicillin; Z88.8 Allergy status to other drugs, medicaments and biological substances; Z79.899 Other long term (current) drug therapy; Z87.891 Personal history of nicotine dependence
CPT/HCPCS: 36415; 74022; 74177; 80053; 81001; 85025; 86140; 99285; J7030

== ENCOUNTER 2019-03-27 16:08 | Emergency (ER) | payer BC ==
[2019-03-27] MEDS ORDERED: EPINEPHrine 1 MG/ML SDV IM ONE (16:35)
[2019-03-27] MEDS ORDERED: Famotidine 20 MG/2 ML SDV IVPUSH ONE (16:35)
[2019-03-27] MEDS ORDERED: methylPREDNISolone Sodium Succinate 125 MG/2 ML SDV IV ONE (16:35)
[2019-03-27] MEDS ORDERED: EPINEPHrine 1 MG/ML SDV SUBCUT ONE (16:35)
[2019-03-27] MEDS ORDERED: diphenhydrAMINE 50 MG/ML SDV IVPUSH ONE ×2 (16:35→16:37)
[2019-03-27] MEDS ORDERED: methylPREDNISolone Sodium Succinate 125 MG/2 ML SDV IVPUSH ONE (16:36)
[2019-03-27] MEDS ORDERED: Famotidine 20 MG Tab PO ONE (16:37)
[2019-03-27] MEDS ORDERED: Sodium Chloride 0.9% 1,000 ML IV SCH (16:45)
[2019-03-27 16:58] VITALS: BP 127/90; PULSE 70
--- NOTE | 2019-03-27 17:38 | EDM.PDOC ---
ED HPI GENERAL MEDICAL PROBLEM - General Chief Complaint: Allergic Reaction Stated Complaint: ALLERGIC REACTION Time Seen by Provider: 03/27/19 18:21 Source of Information: Reports: Patient - History of Present Illness INITIAL COMMENTS - FREE TEXT/NARRATIVE: 38 years old female patient presented with chief complaint of allergic reaction. Patient stated that she had think she was exposed to something that she is not aware of then all of a sudden started feeling rash and flushing of her face. Swelling of her lips, and feeling like her throat is closing up. Denies any chest pain or shortness breath. Denies any dizziness. Denies any wheezing. Also her eye and face was very itchy. No recent medication exposure, or chemical or food or detergent or close. Never had anything like that before. - Related Data Allergies Allergy/AdvReac Type Severity Reaction Status Date / Time codeine Allergy Nausea and Verified 10/06/18 15:02 Vomiting Penicillins Allergy Cannot Verified 10/06/18 15:02 Remember succinylcholine Allergy Other Verified 10/06/18 15:02 Home Meds: Home Meds Gabapentin [Neurontin] 600 mg PO BID 07/13/17 [History] Gemfibrozil [Lopid] 600 mg PO BIDAC 07/13/17 [History] Lisinopril 5 mg PO DAILY 07/13/17 [History] metFORMIN [Glucophage] 1,000 mg PO BIDMEALS 07/13/17 [History] Magnesium Oxide 400 mg PO DAILY #90 tab 07/20/17 [Rx] buPROPion [Wellbutrin SR] 150 mg PO BID 10/06/18 [History] Past Medical History Cardiovascular History: Reports: High Cholesterol, Hypertension Gastrointestinal History: Reports: Pancreatitis Genitourinary History: Reports: None 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: Polycystic Ovaries, Spontaneous , Other (See Below) Other FIELD AUDITOR History: polyps removed Musculoskeletal History: Reports: Back Pain, Chronic Psychiatric History: Reports: Anxiety, Depression Endocrine/Metabolic History: Reports: Diabetes, Type II, Obesity/BMI 30+ Dermatologic History: Reports: None - Infectious Disease History Infectious Disease History: Reports: Chicken Pox, Shingles - Past Surgical History Head Surgeries/Procedures: Reports: None Cardiovascular Surgical History: Reports: None GI Surgical History: Reports: Bariatric Procedure, Cholecystectomy Other GI Surgeries/Procedures: amy 2016 Female Surgical History: Reports: D&C, Other (See Below) Other Female Surgeries/Procedures: polyps removed Endocrine Surgical History: Reports: None Musculoskeletal Surgical History: Reports: None Dermatological Surgical History: Reports: None Social & Family History - Family History Family Medical History: Noncontributory Cardiac: Reports: [place] : Reports: Other (See Below) Other Family History: bladder prolapse Musculoskeletal: Reports: Arthritis Neurological: Reports: CVA Endocrine/Metabolic: Reports: Diabetes, type II Dermatologic: Reports: Psoriasis - Tobacco Use Smoking Status *Q: Never Smoker - Caffeine Use Caffeine Use: Reports: None - Recreational Drug Use Recreational Drug Use: No ED ROS ALLERGIC REACTION - Review of Systems Review Of Systems: ROS reveals no pertinent complaints other than HPI. ED EXAM GENERAL NO PERIP PULSE - Physical Exam Exam: See Below Exam Limited By: No Limitations General Appearance: Alert, No Apparent Distress Ears: Normal External Exam Nose: Normal Inspection Head: Atraumatic, Normocephalic Neck: Normal Inspection Respiratory/Chest: No Respiratory Distress, Lungs Clear, Normal Breath Sounds. No: Crackles, Rales, Rhonchi, Wheezing Cardiovascular: Normal Peripheral Pulses, Regular Rate, Rhythm. No: Bradycardia , Tachycardia GI/Abdominal: Normal Bowel Sounds, Soft, Non-Tender, No Distention Extremities: Normal Inspection, Normal Range of Motion, Non-Tender Neurological: Alert, Oriented, Normal Cognition Psychiatric: Normal Affect, Normal Mood Skin Exam: Warm, Dry, Increased Warmth, Rash Course - Vital Signs Last Recorded V/S: Last Vital Signs Temp 36.1 C 03/27/19 16:08 Pulse 70 03/27/19 16:56 Resp 16 03/27/19 16:56 BP 127/90 03/27/19 16:56 Pulse Ox 97 03/27/19 16:56 - Orders/Labs/Meds Orders: Active Orders 24 hr Category Date Time Status Sodium Chloride 0.9% [Normal Saline] 1,000 ml Med 03/27/19 16:45 Active IV .BOLUS Medication Orders Sodium Chloride (Normal Saline) 1,000 mls @ 500 mls/hr IV .BOLUS SINDHU Last Admin: 03/27/19 16:50 Dose: 500 mls/hr Meds: Medications Generic Name Dose Route Start Last Admin Trade Name Freq PRN Reason Stop Dose Admin Sodium Chloride 1,000 mls @ 500 mls/hr 03/27/19 16:45 03/27/19 16:50 Normal Saline IV 500 mls/hr .BOLUS SINDHU Administration Discontinued Medications Generic Name Dose Route Start Last Admin Trade Name Megan PRN Reason Stop Dose Admin Diphenhydramine HCl 50 mg 03/27/19 16:37 03/27/19 16:49 Benadryl IVPUSH 03/27/19 16:38 50 mg ONETIME ONE Administration Diphenhydramine HCl 50 mg 03/27/19 16:35 03/27/19 16:50 Benadryl IVPUSH 03/27/19 16:36 Not Given ONETIME ONE Epinephrine HCl 0.3 mg 03/27/19 16:35 03/27/19 16:49 Adrenalin SUBCUT 03/27/19 16:36 0.3 mg ONETIME ONE Administration Epinephrine HCl 0.3 mg 03/27/19 16:35 03/27/19 16:50 Adrenalin IM 03/27/19 16:36 Not Given ONETIME ONE Famotidine 20 mg 03/27/19 16:37 03/27/19 16:50 Pepcid PO 03/27/19 16:38 Not Given ONETIME ONE Famotidine 20 mg 03/27/19 16:35 03/27/19 16:49 Pepcid IVPUSH 03/27/19 16:36 20 mg ONETIME ONE Administration Methylprednisolone Sodium Succinate 125 mg 03/27/19 16:36 03/27/19 16:49 Solu-Medrol IVPUSH 03/27/19 16:37 125 mg ONETIME ONE Administration Methylprednisolone Sodium Succinate 125 mg 03/27/19 16:35 03/27/19 16:50 Solu-Medrol IV 03/27/19 16:36 Not Given ONETIME ONE - Radiology Interpretation Free Text/Narrative:: Patient was seen and examined shortly after arrival. Stable. On environmental monitoring specialist. The stable. This is most likely anaphylactic reaction to unknown allergen. Given 0.3 milligrams IM epinephrine, 125 mg IV Solu-Medrol, 50 mg IV Benadryl, 20 mg IV Pepcid and 1 L normal saline bolus. Symptom improved. Patient was observed here in the ER for couple hours. He is feeling well and symptom almost resolved. Again this is most likely anaphylactic reaction to unknown substance. Advised to rest, stay well-hydrated. I did give her a prescription for 5 day course of prednisone and prescription for EpiPen. Advised to follow-up closely with her primary doctor. Come back for any worsening symptom. Patient agrees with the plan. Stable for discharge. Departure - Departure Time of Disposition: 18:24 Disposition: Home, Self-Care 01 Condition: Good Clinical Impression: Anaphylactic reaction - Discharge Information Referrals: Payal Escobar PA [Primary Care Provider] - Forms: ED Department Discharge Additional Instructions: Rest and stay well-hydrated Close follow-up with PCP Use EpiPen for emergencies Come back if symptom worsen - My Orders Last 24 Hours: My Active Orders 03/27/19 16:45 Sodium Chloride 0.9% [Normal Saline] 1,000 ml IV .BOLUS - Assessment/Plan Last 24 Hours: My Active Orders 03/27/19 16:45 Sodium Chloride 0.9% [Normal Saline] 1,000 ml IV .BOLUS Plan: Rest and stay well-hydrated Close follow-up with PCP Use EpiPen for emergencies Come back if symptom worsen
== END 2019-03-27 18:42 | disposition home or self-care (01) ==
LOC: JP.ED 16:08
DX: T78.2XXA Anaphylactic shock, unspecified, initial encounter (principal); E11.9 Type 2 diabetes mellitus without complications; E78.00 Pure hypercholesterolemia, unspecified; I10 Essential (primary) hypertension; F41.9 Anxiety disorder, unspecified; F32.9 Major depressive disorder, single episode, unspecified; Z88.5 Allergy status to narcotic agent; Z88.0 Allergy status to penicillin; Z88.4 Allergy status to anesthetic agent; Z79.899 Other long term (current) drug therapy; Z79.84 Long term (current) use of oral hypoglycemic drugs
CPT/HCPCS: 96361; 96372; 96374; 96375; 99282; J0171; J1200; J2930; J3490; J7030

== ENCOUNTER 2019-11-13 19:52 | Emergency (ER) | payer BC ==
--- NOTE | 2019-11-13 22:35 | EDM.PDOC ---
ED HPI GENERAL MEDICAL PROBLEM - General Chief Complaint: Respiratory Problem Stated Complaint: BAD COUGH,SORE THROAT Time Seen by Provider: 11/13/19 21:45 Source of Information: Reports: Patient History Limitations: Reports: No Limitations - History of Present Illness INITIAL COMMENTS - FREE TEXT/NARRATIVE: This is a 39-year-old female presents with concerns of cough. She reports that the symptoms of been going on for approximately 3 weeks. Cough is generally productive of green-colored sputum, more in the mornings. She had no associated fevers. No chest pain. No significant dyspnea. She has a history of low blood cell count, has previously had this checked out but has plan for repeat visit with her medical secretary. 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 She was furred to the ED by her PCP for concerns of possible opportunistic infection and question that she may need to have a CT scan performed. - Related Data Allergies Allergy/AdvReac Type Severity Reaction Status Date / Time Penicillins Allergy Cannot Verified 10/06/18 15:02 Remember succinylcholine Allergy Other Verified 10/06/18 15:02 codeine AdvReac Nausea and Verified 03/30/19 13:09 Vomiting Home Meds: Home Meds Gabapentin [Neurontin] 600 mg PO TID 07/13/17 [History] Lisinopril 5 mg PO DAILY 07/13/17 [History] gemfibroziL [Lopid] 600 mg PO BIDAC 07/13/17 [History] metFORMIN [Glucophage] 1,000 mg PO BIDMEALS 07/13/17 [History] Magnesium Oxide 400 mg PO DAILY #90 tab 07/20/17 [Rx] Albuterol Sulfate [Albuterol Sulfate Hfa] 2 puff IH ASDIRECTED 11/13/19 [History ] Benzonatate 1 cap PO ASDIRECTED PRN 11/13/19 [History] Fluticasone Propion/Salmeterol [Wixela 250-50 Inhub] 1 dose IH ASDIRECTED [History] Past Medical History HEENT History: Reports: Allergic Rhinitis Cardiovascular History: Reports: High Cholesterol, Hypertension Gastrointestinal History: Reports: Chronic Diarrhea, Pancreatitis Genitourinary History: Reports: None 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: Polycystic Ovaries, Spontaneous , Other (See Below) Other 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 TECHNICIAN History: polyps removed Musculoskeletal History: Reports: Back Pain, Chronic Psychiatric History: Reports: Anxiety, Depression Endocrine/Metabolic History: Reports: Diabetes, Type II, Obesity/BMI 30+ Hematologic History: Reports: B12 Deficiency, Folic Acid Dermatologic History: Reports: None - Infectious Disease History Infectious Disease History: Reports: Chicken Pox - Past Surgical History Head Surgeries/Procedures: Reports: None Cardiovascular Surgical History: Reports: None GI Surgical History: Reports: Bariatric Procedure, Cholecystectomy Other GI Surgeries/Procedures: rny 2016 Female Surgical History: Reports: D&C, Other (See Below) Other Female Surgeries/Procedures: polyps removed Endocrine Surgical History: Reports: None Musculoskeletal Surgical History: Reports: None Dermatological Surgical History: Reports: None Social & Family History - Family History Family Medical History: Noncontributory Cardiac: Reports: [place] : Reports: Other (See Below) Other Family History: bladder prolapse Musculoskeletal: Reports: Arthritis Neurological: Reports: CVA Endocrine/Metabolic: Reports: Diabetes, type II Dermatologic: Reports: Psoriasis - Tobacco Use Smoking Status *Q: Never Smoker - Caffeine Use Caffeine Use: Reports: None ED ROS GENERAL - Review of Systems Review Of Systems: See Below Constitutional: Reports: No Symptoms. Denies: Night Sweats, Weight Loss HEENT: Reports: No Symptoms Respiratory: Reports: Cough Cardiovascular: Reports: No Symptoms Endocrine: Reports: No Symptoms GI/Abdominal: Reports: No Symptoms : Reports: No Symptoms Musculoskeletal: Reports: No Symptoms Skin: Reports: No Symptoms Neurological: Reports: No Symptoms Psychiatric: Reports: No Symptoms Hematologic/Lymphatic: Reports: No Symptoms Immunologic: Reports: No Symptoms ED EXAM, GENERAL - Physical Exam Exam: See Below Exam Limited By: No Limitations General Appearance: Alert, No Apparent Distress Ears: Normal External Exam Nose: Normal Inspection Throat/Mouth: Normal Inspection Head: Atraumatic, Normocephalic Neck: Normal Inspection Respiratory/Chest: Lungs Clear. No: Rhonchi, Wheezing Cardiovascular: Regular Rate, Rhythm GI/Abdominal: Soft, Non-Tender Back Exam: Normal Inspection Extremities: Normal Inspection Neurological: Alert, Oriented Psychiatric: Normal Affect, Normal Mood Skin Exam: Warm, Dry Course - Vital Signs Last Recorded V/S: Last Vital Signs Temp 35.6 C L 11/13/19 20:23 Pulse 67 11/13/19 22:54 Resp 17 11/13/19 22:54 BP 137/86 11/13/19 22:54 Pulse Ox 96 11/13/19 22:54 - Orders/Labs/Meds Labs: Laboratory Tests 11/13/19 Range/Units 21:41 WBC 2.8 L (4.5-11.0) K/uL RBC 4.58 (3.30-5.50) M/uL Hgb 13.1 (12.0-15.0) g/dL Hct 38.4 (36.0-48.0) % MCV 84 (80-98) fL MCH 29 (27-31) pg MCHC 34 (32-36) % Plt Count 205 (150-400) K/uL Neut % (Auto) 13 L (36-66) % Lymph % (Auto) 65 H (24-44) % [place] % (Auto) 18 H (2-6) % Eos % (Auto) 1 L (2-4) % Baso % (Auto) 3 H (0-1) % - Re-Assessments/Exams Free Text/Narrative Re-Assessment/Exam: This is a 39-year-old female presents with concerns of cough x3 weeks. 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 On evaluation here she does have normal vital signs. Her physical exam is normal. Her PCP is suggesting CT scan of her chest given the duration of her symptoms and her abnormal white count. 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 We did a Noncon CT of her chest which was unremarkable. Repeat CBC is largely unchanged. She is safe for discharge with further symptomatic cares and will follow up with PCP and medical secretary as planned. 11/13/19 22:58 Departure - Departure Time of Disposition: 22:51 Disposition: Home, Self-Care 01 Clinical Impression: Bronchitis - Discharge Information Instructions: Acute Bronchitis, Adult, [id number] Referrals: Payal Escobar PA [Primary Care Provider] - Forms: ED Department Discharge Additional Instructions: We did not find a cause for your symptoms but your CT scan is re-assuring. Please follow up with your PCP if your symptoms persist. Sepsis Event Note - Evaluation Sepsis Screening Result: No Definite Risk - Focused Exam Vital Signs: Vital Signs Temp Pulse Resp BP Pulse Ox 11/13/19 22:54 67 17 137/86 96 11/13/19 20:23 35.6 C L 78 14 127/81 97 11/13/19 20:20 35.6 C L 78 14 127/81 97 Date Exam was Performed: 11/13/19 Time Exam was Performed: 22:56
--- NOTE | 2019-11-13 22:43 | CRLCT ---
INDICATION: Persistent cough, abnormal blood work TECHNIQUE: CT chest without contrast. COMPARISON: Chest radiograph October 25, 2019, CT abdomen pelvis 10/06/2018 FINDINGS: Cardiovascular structures: Heart size is normal. Thoracic aorta and main pulmonary artery are normal in caliber. Mediastinum and kris: No sign of mass or adenopathy. Lungs: Clear. Pleura and pericardium: No effusions. Chest wall and axilla: No mass or adenopathy. Upper abdomen: Status post gastric bypass procedure. Prominent varices in the left upper quadrant, stable. Status post cholecystectomy. Partially calcified mass in the pancreatic tail is stable compared to October 06, 2018. Bones: No significant findings. IMPRESSION: No acute intrathoracic abnormality. Stable, partially calcified mass in the pancreatic tail. Stable varices in the left upper quadrant. Status post gastric bypass procedure and cholecystectomy. Please note that all CT scans at this facility use dose modulation, iterative reconstruction, and/or weight-based dosing when appropriate to reduce radiation dose to as low as reasonably achievable. Dictated by Debi Jackson MD @ Nov 13 2019 10:02PM (Electronically Signed)
[2019-11-13 22:54] VITALS: BP 137/86; PULSE 67
== END 2019-11-13 23:02 | disposition home or self-care (01) ==
LOC: JP.ED 19:52
DX: J40 Bronchitis, not specified as acute or chronic (principal); E78.00 Pure hypercholesterolemia, unspecified; I10 Essential (primary) hypertension; F41.9 Anxiety disorder, unspecified; F32.9 Major depressive disorder, single episode, unspecified; E11.9 Type 2 diabetes mellitus without complications; E66.9 Obesity, unspecified; Z88.0 Allergy status to penicillin; Z88.5 Allergy status to narcotic agent; Z88.8 Allergy status to other drugs, medicaments and biological substances; Z79.84 Long term (current) use of oral hypoglycemic drugs; Z79.899 Other long term (current) drug therapy; Z68.35 Body mass index [BMI] 35.0-35.9, adult
CPT/HCPCS: 36415; 71250; 85025; 99284-25